=== PATIENT | male | born 1990 | race Caucasian/White ===

== ENCOUNTER 2019-01-08 10:03 | Emergency (ER) | payer BC, OTHER ==
[~2019-01-08] VITALS: Ht 182.9 cm; Wt 85.0 kg
[~2019-01-08 10:03] MED LIST: DOCU-144 PO; HYDR25SU23 PR; IBUP800T48 PO
[2019-01-08 10:12] VITALS: BP 131/74; PULSE 70; RESP 17; Ht 182.9 cm; Wt 85.0 kg
== END 2019-01-08 10:54 | disposition home or self-care (01) ==
LOC: FTE 10:03
DX: K64.9 Unspecified hemorrhoids (principal)
CPT/HCPCS: 99282